=== PATIENT | male | born 1970 | race Caucasian/White ===

== ENCOUNTER → 2020-07-10 | Outpatient (CLI) | payer OTHER | LOC: M SLEEP HO 08:46 | PROVIDERS: ATTEND Nurse Practitioner Family | DX: Z53.9 Procedure and treatment not carried out, unspecified reason (principal) ==

== ENCOUNTER → 2020-09-10 | Outpatient (CLI) | payer OTHER ==
--- NOTE | 2020-09-10 08:33 | PFTRPT ---
Height: 69.00 Inches Weight: 260.00 Lbs BSA: 2.31 Diagnosis: D86.2 DATE: 09/10/2020 ORDERING PHYSICIAN: Carlos Uribe MD Pre and post bronchodilator studies have excellent technical quality. Forced vital capacity is borderline. FEV1 is in proportion. Obstructive index is therefore normal. Expiratory limit of the flow-volume loop is reasonably normal. No significant bronchodilator response is identified. Total lung capacity is normal. Residual volume generally in proportion. Diffusing capacity is normal. Hemoglobin is acceptable at 13.2. Airway resistance and conductance are normal. IMPRESSION: Probably normal study. MTDD
== END ==
LOC: M CARPUL 07:58
PROVIDERS: ATTEND Internal Medicine Pulmonary Disease
DX: D86.2 Sarcoidosis of lung with sarcoidosis of lymph nodes (principal)

== ENCOUNTER → 2020-09-15 | Outpatient (CLI) | payer OTHER ==
[~2020-09-15] MED LIST: METHACHOLINE KIT (J7674) INH ONE
--- NOTE | 2020-09-15 11:38 | PFTRPT ---
Height: 69.00 Inches Weight: 260.00 Lbs BSA: 2.31 Diagnosis: D86.2 DATE: 09/15/2020 Ordering Provider: Dr. Uribe Quality: Study is of excellent technical quality. Procedure: Under protocol, methacholine is administered. A dose of 10 mg or 63.875 CDUs at 31% decline in the FEV1 was noted. PC of 4.79 is significant. Flow rates did return to baseline post bronchodilator administration. IMPRESSION: Positive methacholine challenge study. MTDD
== END ==
LOC: M CARPUL 09:35
PROVIDERS: ATTEND Internal Medicine Pulmonary Disease
DX: D86.2 Sarcoidosis of lung with sarcoidosis of lymph nodes (principal)
CPT/HCPCS: 94070; 95070; J7674

== ENCOUNTER → 2020-10-06 | Outpatient (CLI) | payer OTHER ==
--- NOTE | 2020-10-07 14:31 | SLEEPCENT ---
NOCTURNAL POLYSOMNOGRAPHY DATE: 10/06/2020 ORDERED BY: Carlos Uribe M.D. Nocturnal polysomnography was performed for evaluation of sleep physiology in this patient with a prior history of obstructive sleep apnea syndrome. 8 hours and 34 minutes of data were reviewed. There were 496 minutes of sleep identified. Sleep latency was short at 6.5 minutes. REM latency was normal at 107 minutes. Sleep architecture was good with three REM cycles. There was some minor fragmentation. Overall sleep efficiency was 97.3%. The electrocardiogram showed a sinus rhythm with an average heart rate of 70 beats per minute. EEG showed normal waveforms for wake and sleep. There were 110 respiratory events identified of 10 seconds in duration or greater for an apnea-hypopnea index of 13.3. The events were not exclusive to sleep stage nor body posture. Arousals from respiratory events occurred 1.2 times per hour and oxygen saturations were seen below 90%. There was some minor limb activity. Arousals from limb events were few and snoring was noted over the course of the entire study. IMPRESSION: Obstructive sleep apnea syndrome (G47.33), apnea-hypopnea index 13.3. RECOMMENDATION: The patient should be encouraged to return to [facility]. In the interim, alcohol and sedative avoidance should be practiced and caution exercised during the operation of motor vehicles.
== END ==
LOC: M SLEEP 20:00
PROVIDERS: ATTEND Internal Medicine Pulmonary Disease
DX: G47.33 Obstructive sleep apnea (adult) (pediatric) (principal)

== ENCOUNTER → 2020-11-18 | Outpatient (CLI) | payer OTHER ==
--- NOTE | 2020-11-22 19:02 | SLEEPCENT ---
DATE: 11/18/2020 ORDERED BY: QUE Smith Nocturnal polysomnography was performed for the titration of pressure therapy in this patient with obstructive sleep apnea syndrome, apnea-hypopnea index of 13.3. For testing a ResMed F30 full face mask of small size was used, 4 cm of water pressure were applied to the circuit, and the lights were extinguished. Eight hours and 57 minutes of data were reviewed. There were 465 minutes of sleep identified. Sleep latency was mildly prolonged at 18 minutes. REM latency was normal at 89 minutes. Sleep architecture was good with four cycles and evidence of REM rebound late in the study. Overall sleep efficiency was 88%. The electrocardiogram showed a sinus rhythm with an average heart rate of 74 beats per minute. EEG showed normal waveforms for wake and sleep. Respiratory events were best palliated with CPAP at a pressure of +12 with some snoring but no obstructive events seen after that time. IMPRESSION: Obstructive sleep apnea syndrome (G47.33). RECOMMENDATION: Nightly use of pressure therapy 12 cm of water. cc: QUE Bianchi
== END ==
LOC: M SLEEP 20:00
PROVIDERS: ATTEND Nurse Practitioner Family
DX: G47.33 Obstructive sleep apnea (adult) (pediatric) (principal)